=== PATIENT | male | born 1990 | race Caucasian/White ===

== ENCOUNTER 2024-07-09 13:31 | Observation (INO) | payer BC ==
[~2024-07-09] VITALS: Ht 177.8 cm; Wt 91.4 kg
--- NOTE | ~2024-07-09 | DS ---
[facility] [address], [place] [address] Draft ADMISSION DATE: 07/09/2024 DISCHARGE DATE: 07/11/2024 REASON FOR ADMISSION: Colitis. HISTORY OF PRESENT ILLNESS: This 34-year-old white man presented to the emergency room with a sudden onset of left side abdominal pain and significant diarrhea and rectal bleeding. He had no antecedent symptoms leading up to this episode. 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 Evaluation in the emergency room confirmed an elevated white count and a CT scan showed inflammatory changes of the left colon. He is admitted for further evaluation and care. PERTINENT PHYSICAL EXAMINATION: GENERAL: Showed a well-developed, well-nourished white man in vigorous health overall. He had no systemic toxicity. HEENT: Mucous membranes are slightly dry. Trachea midline. CHEST: Clear. HEART: Regular without murmur. ABDOMEN: Nondistended and generally soft. There is mild tenderness in the left mid abdomen and suprapubic and periumbilical area. EXTREMITIES: Show no clubbing, cyanosis, or edema. LABORATORY STUDIES: Showed a white count of 14.7, hematocrit 46.9, platelets 205,000. Normal Chem profile, normal coag studies. ASSESSMENT: The patient was considered to have colitis of uncertain etiology. His C-reactive protein was performed which was normal. He was given intravenous hydrocortisone 100 mg IV q.8 hours and antibiotic, Flagyl intravenously administered and IV Cipro. Bowel rest was maintained and he had liquids for comfort. The following day had much improvement clinically. He was deemed appropriate for colonoscopic evaluation to better characterize the type of colitis noted. After two tap water enemas he underwent intravenous sedation with colonoscopy. He was found to have only mild edema of the rectum and rectosigmoid, but significant colitis, probably ischemic colitis of the left colon. Complete sparing of the transverse and right colon was noted. Complete colonoscopy was undertaken to the cecum despite the relatively PATIENT NAME: BLANCA CASTELLANOS DISCHARGE SUMMARY DATE OF : [birth year] REPORT #: [id number] PHYSICIAN: JESSIKA DYER MD PCP: TOMÁS DÍAZ PA-C REPORT IS CONFIDENTIAL AND NOT TO BE RELEASED WITHOUT AUTHORIZATION [facility] [address], [place] [address] Draft minimal bowel prep, he underwent. Biopsies were taken throughout. He was considered likely to have ischemic colitis rather than inflammatory bowel disease and steroids were discontinued. He was begun on oral Flagyl and Levaquin antibiotics and maintained on a low-fiber diet. By the following morning, he was doing quite well. His symptoms have largely resolved. A fecal calprotectin was obtained which may better characterize his diagnosis which at this point, I believe to be ischemic colitis. He will be discharged home anticipating a two week low-fiber diet. I will see him back in approximately a month or so in the office. DISCHARGE MEDICATIONS: Will include 1. Levaquin 500 mg p.o. daily #7. 2. Flagyl 250 mg p.o. t.i.d. #21 to avoid alcohol. 3. Tylenol Extra Strength 500 mg two tablets p.o. q.6 hours as needed for pain #30. He will discontinue ibuprofen (NSAIDs have been implicated in colitis issues as well). 4. Stool studies which were obtained are still pending. It is noted as is a fecal calprotectin determination. His stool studies to include E coli and shiga toxin, Campylobacter and salmonella. MD FLORIN Keyes/MARIA /[id number] cc: IBETH Ma [facility] Copies: TOMÁS DÍAZ PA-C ~ PATIENT NAME: BLANCA CASTELLANOS DISCHARGE SUMMARY DATE OF : [birth year] REPORT #: [id number] PHYSICIAN: JESSIKA DYER MD PCP: TOMÁS DÍAZ PA-C REPORT IS CONFIDENTIAL AND NOT TO BE RELEASED WITHOUT AUTHORIZATION
[2024-07-09] MEDS ORDERED: IBU800 MG PO (14:13)
[2024-07-09] MEDS ORDERED: SODIUM CHLORIDE 0.9% 500 ML IV PRN (14:15)
[2024-07-09 14:19] LABS: BASOPHILS 0.3 % (0-2); EOSINOPHILS 0.5 % (0-6); HEMATOCRIT 46.9 % (35.0-50.0); HEMOGLOBIN 16.3 g/dL (12.0-18.0); LYMPHOCYTES 12.1 % (24-44); MCH 29.2 (27-36); MCHC 34.8 g/dl (30-36); MCV 83.9 fl (81-99); MONOCYTES 5.3 % (0-12); NEUTROPHILS 81.8 % (39-80); PLATELET COUNT 205 K/uL (140-440); RDW 12.7 (10.5-15.0)
[2024-07-09] MEDS ORDERED: fentaNYL citrate 100 MCG/2 ML VIAL IV ONE ×2 (14:30→14:45)
[2024-07-09] MEDS ORDERED: ondansetron HCL 4 MG/2 ML VIAL IV ONE ×2 (14:30→17:30)
[2024-07-09] MEDS ORDERED: fentaNYL citrate 100 MCG/2 ML VIAL ONE (14:34)
[2024-07-09 14:40] LABS: ALBUMIN 4.3 g/dL (3.4-5.0); ALBUMIN/GLOBULIN RATIO 1.34 (1.1-2.4); BUN/CREATININE RATIO 13.33 (6.0-28.6); CALCIUM 8.9 mg/dL (8.5-10.1); CREATININE, SERUM 1.2 mg/dL (0.70-1.30); PROTEIN, TOTAL 7.5 g/dL (6.4-8.2)
[2024-07-09 14:56] LABS: PARTIAL THROMBOPLASTIN TIME 25.3 Sec (22.9-41.3)
[2024-07-09 14:57] LABS: INR 1.05 (0.80-1.30); PROTIME 13.1 Sec (11.2-14.2)
[2024-07-09] MEDS ORDERED: MORPHINE SULFATE 4 MG/ML VIAL IV ONE (15:15)
[2024-07-09 15:24] LABS: ABO O; ANTIBODY SCREEN NEGATIVE; RH POSITIVE
[2024-07-09] MEDS ORDERED: HYDROmorphone HCL 1 MG/ML SYR IV ONE ×2 (15:30→17:30)
[2024-07-09 17:37] VITALS: BP 146/69
[2024-07-09] MEDS ORDERED: HYDROmorphone HCL 1 MG/ML SYR IV PRN (17:45)
[2024-07-09] MEDS ORDERED: ondansetron HCL 4 MG/2 ML VIAL IV PRN (17:45)
[2024-07-09] MEDS ORDERED: LACTATED RINGER'S 1,000 ML IV SCH (17:45)
--- NOTE | 2024-07-09 18:21 | NUR ---
PT TO MED-SURG VIA W/C IS PRESENT. PT AGREES HE IS COMFORTABLE AT THIS TIME H20 TO BEDSIDE IV INFUSING. PT ORIENTED TO ROOM AND CALL SYSTEM. SCD'S READY TO APPLY PT STATES HE MIGHT NEED TO USE THE TOILET REQUESTS HE WAIT UNTIL LATER IN THE EVENING.
--- NOTE | 2024-07-09 19:22 | NUR ---
REPORT RECEIVED FROM DAYSHIFT RN. PATIENT RESTING IN BED, WATCHING TV. PATIENT REQUESTED PAIN MEDICATION WITH NIGHT TIME MEDICATION. NO FURTHER NEEDS IDENTIFIED, CALL LIGHT IN REACH
[2024-07-09 19:53] VITALS: BP 130/75
[2024-07-09 19:55] VITALS: BP 130/75
--- NOTE | 2024-07-09 20:23 | NUR ---
CALL LIGHT ANSWERED, PRN PAIN MEDICATION ADMINISTERED PER ORDER FOR 7/10 ABD PAIN. PATIENT AMBULATED WELL TO RESTROOM WITHOUT ASSISTANCE. STOOL SAMPLE COLLECTED AND SENT TO LAB. PATIENT BACK IN BED WITHOUT DIFFICULTY, IVF CONTINUING TO INFUSE PER ORDER. NO FURTHER NEEDS AT THIS TIME, CALL LIGHT IN REACH. VS OBTAINED AND RECORDED, INTAKE AND OUTPUT DOCUMENTED.
[2024-07-09] MEDS ORDERED: FAMOTIDINE 20 MG/ 2 ML VIAL IV SCH (21:00)
--- NOTE | 2024-07-09 21:00 | NUR ---
SCHEDULED MEDS GIVEN PER ORDER. PRN PAIN MEDICATION ADMINISTERED FOR 6/10 ABD PAIN. IVF CONTINUING TO INFUSE PER ORDER. NO FURTHER NEEDS, CALL LIGHT IN REACH.
[2024-07-09] MEDS ORDERED: CEFAZOLIN SODIUM 2 GM/20 ML SYR IV SCH (22:00)
[2024-07-09] MEDS ORDERED: metroNIDAZOLE/SODIUM CHLORIDE 500 MG/100 ML PIGGYBACK IV SCH (22:00)
[2024-07-09] MEDS ORDERED: HYDROCORTISONE SOD SUCCINATE 100 MG/2 ML VIAL IV SCH (22:00)
--- NOTE | 2024-07-09 22:54 | NUR ---
SCHEDULED MEDS GIVEN PER ORDER. PATIENT AMBULATED TO RESTROOM WITHOUT DIFFICULTY. NO FURTHER NEEDS IDENTIFIED AT THIS TIME. CALL LIGHT IN REACH.
--- NOTE | 2024-07-09 23:28 | NUR ---
PRN PAIN MEDICATION ADMINISTERED PER ORDER, IVF CONTINUING TO INFUSE. PATIENT RESTING IN BED COMFORTABLY. PROVIDED WITH BROTH AND JOVON JENNYFER PER REQUEST. DENIES OTHER NEEDS, CALL LIGHT IN REACH.
[2024-07-10] VITALS (13 sets, daily range): BP systolic 115–137; BP diastolic 54–77
--- NOTE | 2024-07-10 00:03 | NUR ---
PATIENT RESTING, RESPIRATIONS EVEN AND UNLABORED. NO NEEDS IDENTIFIED, CALL LIGHT IN REACH. IVF CONTINUING TO INFUSE PER ORDER.
--- NOTE | 2024-07-10 01:54 | NUR ---
IVF CONTINUING TO INFUSE PER ORDER. PATIENT REFUSING SCD. VS OBTAINED AND RECORDED. INTAKE AND OUTPUT DOCUMENTED. PATIENT AMBULATED TO THE RESTROOM AND BACK TO BED WITHOUT DIFFICULTY. DENIES ANY NEEDS, CALL LIGHT IN REACH
--- NOTE | 2024-07-10 02:48 | NUR ---
CALL LIGHT ANSWERED, PRN PAIN MEDICATION GIVEN. PATIENT DENIES ANY OTHER NEEDS, IVF CONTINUING TO INFUSE PER ORDER. NO FURTHER NEEDS, CALL LIGHT IN REACH
[2024-07-10 05:17] LABS: BASOPHILS 0.2 % (0-2); EOSINOPHILS 0.5 % (0-6); HEMATOCRIT 42.9 % (35.0-50.0); LYMPHOCYTES 14.1 % (24-44); MCH 29.6 (27-36); MCHC 34.9 g/dl (30-36); MCV 84.7 fl (81-99); MONOCYTES 6.4 % (0-12); NEUTROPHILS 78.8 % (39-80); PLATELET COUNT 173 K/uL (140-440); RBC 5.06 M/ul (4.3-5.7); RDW 12.6 (10.5-15.0)
--- NOTE | 2024-07-10 05:21 | NUR ---
VS OBTAINED AND RECORDED. INTAKE AND OUTPUT DOCUMENTED. PATIENT CONTINUING TO REST, REPORTS THAT HE HAS NO NEEDS AT THIS TIME. CALL LIGHT IN REACH
[2024-07-10 05:33] LABS: ANION GAP 10.7 (7-21); BUN/CREATININE RATIO 9.09 (6.0-28.6); CALCIUM 8.4 mg/dL (8.5-10.1); CREATININE, SERUM 1.32 mg/dL (0.70-1.30); POTASSIUM 4.7 mmol/L (3.5-5.1)
--- NOTE | 2024-07-10 06:45 | NUR ---
SCHEDULED MEDS GIVEN PER ORDER. IVF CONTINUING TO INFUSE PER ORDER, PATIENT REPORTS THAT HE IS FEELING WELL. ABD ASSESSMENT COMPLETE. NO FURTHER NEEDS IDENTIFIED, CALL LIGHT IN REACH
--- NOTE | 2024-07-10 07:32 | NUR ---
PT AWAKE AT TIME OF SHIFT REPORT RESTING IN BED. AGREES HE IS COMFORTABLE. CALL LIGHT AND NEEDED ITEMS IN REACH
--- NOTE | 2024-07-10 07:57 | NUR ---
HOURLY ROUNDING. PATIENT HAS NO REQUEST CALL LIGHT HAS BEENPLACED WITHIN REACH, AND BOARD HAS BEEN UPDATED.
--- NOTE | 2024-07-10 09:21 | NUR ---
PT ASKS FOR ZOFRAN STATES HE'S "NOT VOMIT SICK" BUT THE LACK OF GOOD SLEEP AND THE DILAUDID LEAVE HIM FEELING KIND OF NAUSEATED. CONTINUES WITHOUT C/O PAIN. DR DYER IN TO SEE HIM PLANS FOR SCOPE THIS AFTERNOON. PROCEEDURE DISCUSSED AND PT VERBALIZES UNDERSTANDING.
--- NOTE | 2024-07-10 10:29 | NUR ---
UR CLINICAL REVIEW: MCG- PER MCG REVIEW MEETS OBS FOR INFLAMMATORY BOWEL WITH NEED FOR CSCOPE LLUVIA LOMELIO OBS 07/09/24 @ 1333 ORDER MATCHES REG NO AUTH REQ FOR OBS VISIT DISCHARGE TO HOME WHEN STABLE 07/11/24
--- NOTE | 2024-07-10 10:39 | NUR ---
PT RESTING EYES CLOSED PAIN MEDS EFFECTIVE
--- NOTE | 2024-07-10 11:20 | NUR ---
Spoke with David. He lives with his in a 2 story home. He does not have any issues getting in or out of his home. 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 He does not use any dme. He plans on dc to home when medically cleared with his . NO financial issues or safety concerns.
--- NOTE | 2024-07-10 12:10 | NUR ---
PT TO THE SHOWER IS ABLE TO DO SELF CARE INDEPENDANTLY. AGREES TO CALL FOR ANY NEEDS
--- NOTE | 2024-07-10 12:38 | NUR ---
SHOWER WELL TOLERATED PT RETURNS TO RESTING IN BED CONTINUES NPO
--- NOTE | 2024-07-10 14:06 | NUR ---
PT RESTING IN BED STATES HE FEELS MUCH BETTER AFTER HAVING A SHOWER AND SHAVING. ANTICIAPTE PROCEEDURE SOON. PT DENIES NEEDS
--- NOTE | 2024-07-10 14:33 | HP ---
[facility] [address], [place] [address] Signed ADMISSION DATE: 07/09/2024 REASON FOR ADMISSION: Bloody diarrhea with left lower abdominal pain and elevated white count, normal C-reactive protein. 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 He is accompanied by his . He presented to the emergency room today with complaints of left lower abdominal pain, fecal urgency, diarrhea, and rectal bleeding. He has associated left lower abdominal pain and some central suprapubic pain as well. He does not have pain on defecation in any way. 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 He had a bowel movement in the middle of the night, which was watery and uncertain bloody at that time. His left lower abdominal pain worsened and his bowel movements became watery and noted bright red blood as well. The pain worsened enough that he presented to the emergency room. He has no family history of ulcerative colitis or Crohn disease, but does have family history of colon cancer in a grandfather and polyps in his own father. There is no other family history of inflammatory bowel disease or other similar problems. His past medical history is notable for arthritis. He has had lower back surgery and neck surgery also. He does have allergies to morphine causing nausea and facial flushing. In the emergency room, his evaluation included a CBC, which was abnormal with a white count elevation to 14.7, hematocrit normal at 46.9, platelets normal at 205,000. Coag studies were normal. An INR of 1.05. Chem profile essentially normal. Glucose 124. C-reactive protein was 0.05. He did undergo a CT scan of the abdomen and pelvis, which I have reviewed. Radiologist interpretation included mild colitis of the descending colon. This included colonic wall thickening and submucosal edema of the descending colon, but no evidence of neoplasm. There was no regional adenopathy. He has no abscess. REVIEW OF SYSTEMS: He denies any shortness of breath or chest pain. He has no dysphagia. He does feel thirsty. PHYSICAL EXAMINATION: GENERAL: Pleasant white man who appears not to be systemically toxic. He is accompanied by his . HEENT: Mucous membranes are slightly dry. Trachea is midline. He has a Hep-Lock in place, but no IV fluids running. He did have 1 L fluid previously. Electronically Signed By: JESSIKA DYER MD 07/10/24 1433 PATIENT NAME: BLANCA CASTELLANOS HISTORY AND PHYSICAL DATE OF : [birth year] REPORT #: [id number] PHYSICIAN: JESSIKA DYER MD PCP: TOMÁS DÍAZ PA-C REPORT IS CONFIDENTIAL AND NOT TO BE RELEASED WITHOUT AUTHORIZATION [facility] [address], [place] [address] Signed CHEST: Clear. HEART: Regular without murmur. ABDOMEN: Nondistended and generally soft. There is mild tenderness in the left mid abdomen and in the suprapubic and periumbilical area. EXTREMITIES: Show no clubbing, cyanosis, or edema. There are no petechiae. LAB STUDIES: Notable primarily for white count of 14.7, hematocrit 46.9, platelets 205,000. Normal Chem profile. Normal coagulation studies. ASSESSMENT: He may have an infectious colitis causing diarrhea and bleeding or particularly given his age the possibility of inflammatory bowel disease. It is quite a bit less likely this represents malignancy, though he does have family history of colon cancer in his grandfather and polyps in his own father. I have recommended admission to the hospital, IV fluids, parental pain medication, empiric antibiotic including Flagyl. Stool studies to be obtained in consideration for treatment with intravenous steroids, hydrocortisone 100 mg IV q.8 hours. A partial or complete colonoscopy would be helpful as to diagnosis and that might be possible tomorrow depending how his course is over the night. Some level of bowel prep would be needed of course for that, possibly to include only Fleet's enemas. MD FLORIN Keyes/AFRICAL /[id number] cc: Dr. Gonsalves Copies: ~ Electronically Signed By: JESSIKA DYER MD 07/10/24 1433 PATIENT NAME: BLANCA CASTELLANOS HISTORY AND PHYSICAL DATE OF : [birth year] REPORT #: [id number] PHYSICIAN: JESSIKA DYER MD PCP: TOMÁS DÍAZ PA-C REPORT IS CONFIDENTIAL AND NOT TO BE RELEASED WITHOUT AUTHORIZATION
--- NOTE | 2024-07-10 15:33 | NUR ---
PT CONTINUES WAITING FOR PROCEEDURE, DENIES NEEDS AT THIS TIME.
--- NOTE | 2024-07-10 16:20 | NUR ---
WARM WATER ENEMA ADMINISTERED PER DR DYER ORDERS FLUID COMES BACK CLEAR LIQUID WITH A SMALL AMOUNT OF STOOL RESIDULE. REPEATED PROCEEDURE WELL TOLERATED BY PT.
--- NOTE | 2024-07-10 16:53 | NUR ---
PT PASSING MOSTLY CLEAR FLUID FEELS A BIT CRAMPY SO PAIN MED ADMINISTERED.
[2024-07-10] MEDS ORDERED: MIDAZOLAM HCL 5 MG/5 ML VIAL ONE (17:12)
[2024-07-10] MEDS ORDERED: fentaNYL citrate 100 MCG/2 ML VIAL ONE (17:13)
--- NOTE | 2024-07-10 17:15 | NUR ---
PT TO O/R VIA SUNIL
--- NOTE | 2024-07-10 18:02 | NUR ---
07/10/241801 Radha Ferrara 1800- RECEIVED REPORT FROM YASMANI CASTREJON. PT RESTING ON LEFT SIDE, ALL MONITORS IN PLACE, MOVED TO ROOM AIR. LR INFUSING TO LAC. ABD SOFT, NON DISTENDED. PT VERY DROWSY.
[2024-07-10] MEDS ORDERED: levoFLOXacin 500 MG TAB PO SCH (18:15)
--- NOTE | 2024-07-10 18:53 | NUR ---
PT BACK FROM PROCEEDURE LEFT SL AT THIS TIME SO HE CAN TOILET DESIRED. O/R REPORTS 1000ML FLUID IN, WILL RESTART IV WHEN PT SETTLES IN. BROTH AND CHEESE STIX PROVIDED PER REQUEST. DENIES WANT OF OTHER ITEMS AT THIS TIME
--- NOTE | 2024-07-10 19:28 | NUR ---
REPORT RECEIVED FROM DAY SHIFT RN. PT LYING IN BED ALERT AND ORIENTED. DENIES NEEDS. WHITE BOARD UPDATED. CALL LIGHT IN REACH.
--- NOTE | 2024-07-10 20:10 | NUR ---
EVENING ASSESSMENT COMPLETE. POST OP VS OBTAINED. PT REPORTS ABD PAIN /10. PRN FOR PAIN AND NAUSEA ADMIN PER EMAR. PT REPORTS LIQUID BM WITH SCANT AMOUNT BLOOD. BOWEL TONES ACTIVE. ABD SOFT. CRACKERS AND BROTHER PROVIDED. PT DENIES QUESTIONS OR CONCERNS. CALL LIGHT IN REACH.
--- NOTE | 2024-07-10 20:55 | NUR ---
IN ROOM FOR POST OP VS, VSS. KORY KRUSE PROVIDES ADDITIONAL PO FLUIDS FOR pt. CALL LIGHT IN REACH.
[2024-07-10] MEDS ORDERED: FAMOTIDINE 20 MG TAB PO SCH (21:00)
--- NOTE | 2024-07-10 22:00 | NUR ---
POST OP VS OBTAINED, WNL. NO C/O PAIN OR NAUSEA AT THIS TIME. SCD'S PLACED. NO FURTHER NEEDS. CALL LIGHT IN REACH.
--- NOTE | 2024-07-11 00:15 | NUR ---
PT RESTING IN BED WITH EYES CLOSED. RESPIRATIONS EVEN. CALL LIGHT IN RE3ACH.
[2024-07-11 01:51] VITALS: BP 122/68
[2024-07-11 01:53] VITALS: BP 122/68
--- NOTE | 2024-07-11 02:02 | NUR ---
PT AWAKE IN BED. VS OBTAINED, WNL. PT REPORTS ABD PAIN 09/07. PRN FOR PAIN ADMIN. NO C/O NAUSEA AT THIS TIME. PT GWYN CLEAR LIQUIDS WELL. BOWEL TONES ACTIVE. ABD SOFT. SCANT AMOUNT RED MUCOUS LIKE STOOL NOTED IN TOILET. NO FURTHER NEEDS. CALL LIGHT IN REACH.
--- NOTE | 2024-07-11 03:58 | NUR ---
PT RESTING IN BED WITH EYES CLOSED. RESPIRATIONS EVEN. CALL LIGHT IN REACH.
[2024-07-11 05:21] VITALS: BP 131/65
--- NOTE | 2024-07-11 05:36 | NUR ---
PT AWAKE IN BED. SCHEDULED MEDS ADMIN PER EMAR. PT DENIES PAIN OR NAUSEA. NO NEEDS AT THIS TIME. CALL LIGHT IN REACH.
--- NOTE | 2024-07-11 07:18 | NUR ---
REPORT RECEIVED FROM LUCÍA RENTERIA.
[2024-07-11] MEDS ORDERED: metroNIDAZOLE 250 MG TAB PO SCH (08:00)
--- NOTE | 2024-07-11 08:07 | OR ---
[facility] [address], [place] [address] Signed DATE OF OPERATION: 07/09/2024 SURGEON: Jessika Dyer MD PREOPERATIVE DIAGNOSIS: Acute bloody diarrhea with fecal urgency and CT scan findings left-sided inflammation of colon. POSTOPERATIVE DIAGNOSIS: Probable ischemic colitis including inflammatory change of left colon with transverse and rectal sparing PROCEDURE: Total colonoscopy to cecum with multiple biopsies. ANESTHESIA: Intravenous sedation, fentanyl 150 mcg and Versed 10 mg. 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 He was admitted by me yesterday having presented to the emergency room for his extreme fecal urgency and bloody diarrhea. This was of sudden onset with no prodromal symptoms. A CT scan was performed showing inflammatory changes of the left colon. He has no family history of ulcerative colitis that he is aware of and certainly does not smoke or have other ischemia producing abnormalities. He was treated with intravenous steroids, hydrocortisone, antibiotics, PPI medication on the basis of possible new onset inflammatory bowel disease. He is much improved today I have recommended colonoscopy be undertaken at this time to better characterize the issue of colitis to better guide therapy. The possibility of ulcerative colitis, Crohn's disease, infectious colitis, as well as ischemic colitis have all been considered. Of note, his C-reactive protein is NORMAL. He understands the risk of colonoscopy including, but not limited to bleeding, infection, and perforation and wished to proceed. FINDINGS: His only bowel prep was two tap water enemas, but good visualization throughout the entire colon was accomplished. Complete colonoscopy was undertaken of the cecum. He did have inflammatory changes of the left colon which were consistent with ischemic colitis. There were edematous changes of the rectum possibly related to the pre op Electronically Signed By: JESSIKA DYER MD 07/11/24 0807 PATIENT NAME: BLANCA CASTELLANOS OPERATIVE REPORT DATE OF : [birth year] REPORT #: [id number] PHYSICIAN: JESSIKA DYER MD PCP: TOMÁS DÍAZ PA-C REPORT IS CONFIDENTIAL AND NOT TO BE RELEASED WITHOUT AUTHORIZATION [facility] [address], [place] [address] Signed enemas and complete sparing of the transverse and right colon. Biopsies were taken throughout and final pathology is pending. DESCRIPTION OF PROCEDURE: The patient was brought to the endoscopy suite and placed in lateral decubitus position, given intravenous sedation to the point of slurred speech and nystagmus with full cardiopulmonary monitoring. Digital rectal examination was normal. An Olympus video colonoscope was passed in the rectum. The rectum was initially appeared reasonably normal. The scope was advanced to the sigmoid and into the mid left colon where inflammatory changes, edema and yellowish superficial plaque-like changes were noted. There is no typical deep ischemic changes though the initial impression was probable ischemic colitis. The scope was advanced beyond the splenic flexure to the transverse colon, which looked quite normal. The scope was ultimately advanced to the cecum with addition of irrigation. The cecum and right colon and transverse colon essentially looked normal. There was good clarity to the submucosal blood vessels, no edema and certainly no ulcerations. Biopsies were taken of the cecum, right colon and transverse colon. Biopsies were also taken of the proximal descending colon in the region of the splenic flexure, as there was edema and signs of inflammation there. The most dense inflammation was extending from approximately 60-70 cm and multiple biopsies were taken of that area as well. Further withdrawal confirmed inflammatory changes actually in the sigmoid and to a lesser extent the rectosigmoid and edematous changes of the rectum proper. Biopsies were taken in all those areas. The scope was removed and the patient was taken to the recovery room in good condition. CONCLUDING DIAGNOSIS: Colitis of the left colon with sparing of the right and transverse colon, edema and low-grade inflammation of rectum as well. It is uncertain the underlying etiology of this colitis, whether it is an ulcerative colitis problem (despite a normal CRP) or an infectious process (stool studies pending or an ischemic colitis type problem despite his vigorous health otherwise). In aggregate given the sudden onset of symptoms, lack of prodromal symptoms, normal CRP, and distribution of inflammatory changes, he most likely has ischemic colitis which will be self limited. PLAN: will discontinue iv steroids and start oral antibiotic flagyl and levaquin, a low fiber diet for a t least 2 weeks and provide supportive care. Will order a fecal calprotectin which may further differentiate the diagnosis and wait for pathologic resluts of biopsies. Electronically Signed By: JESSIKA DYER MD 07/11/24 0807 PATIENT NAME: BLANCA CASTELLANOS OPERATIVE REPORT DATE OF : [birth year] REPORT #: [id number] PHYSICIAN: JESSIKA DYER MD PCP: TOMÁS DÍAZ PA-C REPORT IS CONFIDENTIAL AND NOT TO BE RELEASED WITHOUT AUTHORIZATION [address] [address] Signed MD FLORIN Keyes/MODL /[id number] cc: IBETH Ma [facility] Copies: TOMÁS DÍAZ PA-C ~ Electronically Signed By: JESSIKA DYER MD 07/11/24 0807 PATIENT NAME: BLANCA CASTELLANOS OPERATIVE REPORT DATE OF : [birth year] REPORT #: [id number] PHYSICIAN: JESSIKA DYER MD PCP: TOMÁS DÍAZ PA-C REPORT IS CONFIDENTIAL AND NOT TO BE RELEASED WITHOUT AUTHORIZATION
[2024-07-11] MEDS ORDERED: LEVOFLOXACIN500 MG PO (08:27)
[2024-07-11] MEDS ORDERED: METRONIDAZOLE250 MG PO (08:28)
[2024-07-11] MEDS ORDERED: TYLENOL EXTRA500 MG PO (08:29)
[2024-07-11 09:04] VITALS: BP 135/75
--- NOTE | 2024-07-11 09:10 | NUR ---
Briefly saw pt, no needs. Home today.
--- NOTE | 2024-07-11 09:13 | NUR ---
ADMINISTERED MORNING MEDS WITH LUCÍA REA, PER ORDER. PT DRESSED AND READY TO GO. WILL D/C SOON PAPERWORK IS READY. PT DENIES ANY CONCERNS OR NEEDS AT THIS TIME. CALL LIGHT WITHIN REACH.
--- NOTE | 2024-07-11 09:48 | NUR ---
MED REC COMPLETE
--- NOTE | 2024-07-13 19:35 | PATH ---
[facility] [address] [facility] [place], [place] [address] Signed SPECIMEN(S): A CECUM COLON BIOPSY SPECIMEN(S): B TRANSVERSE COLON BIOPSY SPECIMEN(S): C PROXIMAL DESCENDING COLON BIOPSY SPECIMEN(S): D DISTAL LEFT COLON BIOPSY SPECIMEN(S): E SIGMOID COLON BIOPSY SPECIMEN(S): F RECTUM BIOPSY SPECIMEN SOURCE: A. CECUM COLON BIOPSY B. TRANSVERSE COLON BIOPSY C. PROXIMAL DESCENDING COLON BIOPSY D. DISTAL LEFT COLON BIOPSY E. SIGMOID COLON BIOPSY F. RECTUM BIOPSY CLINICAL HISTORY: Abdominal pain, bloody diarrhea, inflammatory changes-colitis uncertain type, probable ischemic colitis left colon FINAL PATHOLOGIC DIAGNOSIS: A. Cecum colon biopsy: - Fragments of benign colonic mucosa, negative for specific diagnostic abnormality. B. Transverse colon biopsy: - Fragments of benign colonic mucosa, negative for specific diagnostic abnormality. C. Proximal descending colon biopsy: - Fragments of benign colonic mucosa, negative for specific diagnostic abnormality. D. Distal left colon biopsy: - Colonic mucosa with lamina propriate fibrosis, epithelial erosion and crypt atrophy. - See comment. E. Sigmoid colon biopsy: - Benign colonic mucosa with focal slight lamina propriate fibrosis, crypt atrophy and chronic inflammation. - See comment. F. Rectum biopsy: - Benign colonic mucosa with focal superficial epithelial erosion, nonspecific. COMMENT: PATIENT NAME: BLANCA CASTELLANOS PATHOLOGY DATE OF : [birth year] REPORT #: [id number] PHYSICIAN: SHAR HOPE PCP: TOMÁS DÍAZ PA-C REPORT IS CONFIDENTIAL AND NOT TO BE RELEASED WITHOUT AUTHORIZATION [facility] [address] [place], [place] [address] Signed The biopsy findings raise the consideration of ischemic colitis and are consistent with the history of "probable ischemic colitis of the left colon". Clinical correlation is requested for definitive characterization. JVR:hong MICROSCOPIC EXAMINATION: Histologic sections of all submitted blocks are examined by light microscopy. These findings, together with the gross examination, support the pathologic diagnosis. GROSS DESCRIPTION: A. The specimen, labeled and designated "Uselman, cecum colon biopsy," is received in formalin and consists of three abel soft tissue fragments, ranging from 0.2-0.3 cm. Entirely submitted in (A1). B. The specimen, labeled and designated "Uselman, transverse colon biopsy," is received in formalin and consists of three abel soft tissue fragments, ranging from 0.2-0.3 cm. Entirely submitted in (B1). C. The specimen, labeled and designated "Uselman, proximal descending colon biopsy," is received in formalin and consists of one abel soft tissue fragment, 0.5 cm. Entirely submitted in (C1). D. The specimen, labeled and designated "Uselman, distal left colon biopsy," is received in formalin and consists of four bael soft tissue fragments, ranging from 0.2-0.4 cm. Entirely submitted in (D1). E. The specimen, labeled and designated "Uselman, sigmoid colon biopsy," is received in formalin and consists of two abel soft tissue fragments, ranging from 0.2-0.3 cm. Entirely submitted in (E1). F. The specimen, labeled and designated "Uselman, rectum biopsy," is received in formalin and consists of five abel soft tissue fragments, ranging from 0.2-0.5 cm. Entirely submitted in (F1). VB (under the direct supervision of a pathologist) The Gross Description was prepared using a voice recognition system. The report was reviewed for accuracy; however, sound-alike word errors, addition and/or deletions may occur. If there is any question about this report, please contact Client Services. PERFORMING LABORATORY: Technical component was performed by [facility], [address] [place] [id number] (CLIA# [id number]). Professional interpretation was PATIENT NAME: BLANCA CASTELLANOS PATHOLOGY DATE OF : [birth year] REPORT #: [id number] PHYSICIAN: SHAR HOPE PCP: TOMÁS DÍAZ PA-C REPORT IS CONFIDENTIAL AND NOT TO BE RELEASED WITHOUT AUTHORIZATION [facility] [address] [place] [id number] Signed [email or web address], [address] [place] [address], [place] [address] (CLIA#: [id number]). Diagnostician: Adithya Ortiz MD Pathologist Electronically Signed 07/13/2024 Copies: ~ PATIENT NAME: BLANCA CASTELLANOS PATHOLOGY DATE OF : [birth year] REPORT #: [id number] PHYSICIAN: SHAR PATHOLOGY PCP: TOMÁS DÍAZ PA-C REPORT IS CONFIDENTIAL AND NOT TO BE RELEASED WITHOUT AUTHORIZATION
== END 2024-07-11 09:41 | disposition home or self-care (01) ==
LOC: ED 13:31 → MS 13:33
PROVIDERS: Emergency Medicine; ADMIT Surgery; ATTEND Surgery
PROC: 0DBH8ZX Excision of Cecum, Via Natural or Artificial Opening Endoscopic, Diagnostic (ICD-10-PCS; principal; 2024-07-09)
PROC: 0DBL8ZX Excision of Transverse Colon, Via Natural or Artificial Opening Endoscopic, Diagnostic (ICD-10-PCS; 2024-07-09)
PROC: 0DBN8ZX Excision of Sigmoid Colon, Via Natural or Artificial Opening Endoscopic, Diagnostic (ICD-10-PCS; 2024-07-09)
PROC: 0DBP8ZX Excision of Rectum, Via Natural or Artificial Opening Endoscopic, Diagnostic (ICD-10-PCS; 2024-07-09)
PROC: 0DBG8ZX Excision of Left Large Intestine, Via Natural or Artificial Opening Endoscopic, Diagnostic (ICD-10-PCS; 2024-07-09)
DX: K52.9 Noninfective gastroenteritis and colitis, unspecified (principal); K62.5 Hemorrhage of anus and rectum; Z88.5 Allergy status to narcotic agent
CPT/HCPCS: 36415; 74177; 80048; 80053; 85025; 85610; 85730; 86140; 86850; 86900; 86901; 87045; 87046; 96365; 96366; 96375; 96376; 99153; 99285-25; G0378; G0500; J0690; J1171; J1720; J2250; J2405; J3010; J7040; J7121; Q9967

== ENCOUNTER 2024-09-20 18:45 | Emergency (ER) | payer OTHER, BC ==
[~2024-09-20] VITALS: Ht 177.8 cm; Wt 92.4 kg
[~2024-09-20 18:45] MED LIST: IBU800 MG PO; LEVOFLOXACIN500 MG PO; METRONIDAZOLE250 MG PO; TYLENOL EXTRA500 MG PO
[2024-09-20] MEDS ORDERED: ADVIL200 M1 PO (18:54)
[2024-09-20 19:50] LABS: BASOPHILS 0.4 % (0.2-1.2); EOSINOPHILS 5.0 % (0.8-7.0); LYMPHOCYTES 20.5 % (21.8-53.1); MCH 29.7 PG (25.7-32.2); MCHC 34.4 g/dL (32.3-36.5); MCV 86.4 fL (79.0-92.2); MONOCYTES 7.6 % (5.3-12.2); NEUTROPHILS 66.2 % (34.0-67.9); RBC 4.55 M/uL (4.63-6.08)
[2024-09-20 20:19] LABS: INR 1.05 (0.80-1.30); PROTIME 13.3 Sec (11.2-14.2)
[2024-09-20 20:20] LABS: ALT (SGPT) 44.0 U/L (14-59); AST (SGOT) 50.0 U/L (15-37); GLOMERULAR FILTRATION RATE,EST 75.0 mL/min (>60); PROTEIN, TOTAL 6.8 g/dL (6.4-8.2); UREA NITROGEN 20.0 mg/dL (7-18)
[2024-09-20] MEDS ORDERED: SODIUM CHLORIDE 0.9% 1,000 ML IV ONE ×2 (20:45)
[2024-09-20 22:15] LABS: GLOMERULAR FILTRATION RATE,EST 77.0 mL/min (>60); UREA NITROGEN 20.0 mg/dL (7-18)
[2024-09-20 22:33] VITALS: BP 104/61
--- NOTE | 2024-09-21 20:34 | EKG ---
[facility] [address] [facility] [place] [address] Signed Sinus rhythm with marked sinus arrhythmia Otherwise normal ECG No previous ECGs available Confirmed by Shelbie Ibanez MD () on 09/21/2024 8:33:56 PM Electronically Signed By: SHELBIE IBANEZ MD 09/21/242033 PATIENT NAME: BLANCA CASTELLANOS Electrocardiogram DATE OF : [birth year] PHYSICIAN: SHELBIE IBANEZ MD REPORT #: [id number] REPORT IS CONFIDENTIAL AND NOT TO BE RELEASED WITHOUT AUTHORIZATION
== END 2024-09-20 22:41 | disposition home or self-care (01) ==
LOC: ED 18:45
PROVIDERS: Family Medicine
DX: T75.4XXA Electrocution, initial encounter (principal); W86.8XXA Exposure to other electric current, initial encounter; Z88.5 Allergy status to narcotic agent
CPT/HCPCS: 36415; 80048; 80053; 82550; 82803; 83605; 83735; 84484; 85025; 85610; 86140; 93005; 93010; 99283; J7030

== ENCOUNTER 2024-12-12 20:32 | Emergency (ER) | payer BC ==
[~2024-12-12] VITALS: Ht 177.8 cm; Wt 94.0 kg
[~2024-12-12 20:32] MED LIST changes: +ADVIL200 M1 PO
[2024-12-12] MEDS ORDERED: LACTATED RINGER'S 1,000 ML IV ONE (21:00)
[2024-12-12] MEDS ORDERED: HYDROmorphone HCL 1 MG/ML SYR IV PRN (21:00)
[2024-12-12 21:08] LABS: BASOPHILS 0.4 % (0.2-1.2); EOSINOPHILS 6.7 % (0.8-7.0); LYMPHOCYTES 26.8 % (21.8-53.1); MCH 30.0 PG (25.7-32.2); MCHC 35.2 g/dL (32.3-36.5); MCV 85.3 fL (79.0-92.2); MONOCYTES 7.9 % (5.3-12.2); NEUTROPHILS 58.0 % (34.0-67.9); RBC 4.90 M/uL (4.63-6.08)
[2024-12-12 21:17] LABS: BLOOD/HGB, URINE NEGATIVE (Negative); KETONE, URINE NEGATIVE (Negative); LEUK ESTERASE, URINE NEGATIVE (negative); NITRITE, URINE NEGATIVE (negative)
[2024-12-12 21:24] LABS: ALT (SGPT) 28.0 U/L (14-59); AST (SGOT) 25.0 U/L (15-37); GLOMERULAR FILTRATION RATE,EST 70.0 mL/min (>60); PROTEIN, TOTAL 7.2 g/dL (6.4-8.2); UREA NITROGEN 19.0 mg/dL (7-18)
[2024-12-12] MEDS ORDERED: CELEBREX200 MG PO (22:26)
[2024-12-12] MEDS ORDERED: CYCLOBENZAPRINE10 MG PO (22:26)
[2024-12-12] MEDS ORDERED: CYCLOBENZAPRINE HCL 10 MG HOME.PACK PO ONE (22:45)
[2024-12-12 22:53] VITALS: BP 121/74
== END 2024-12-12 22:54 | disposition home or self-care (01) ==
LOC: ED 20:32
PROVIDERS: Family Medicine
DX: M79.18 Myalgia, other site (principal); Z88.5 Allergy status to narcotic agent
CPT/HCPCS: 36415; 74176; 80053; 81003; 85025; 96374; 99284-25; J1171; J7121

== ENCOUNTER 2025-02-20 16:56 | Emergency (ER) | payer BC ==
[~2025-02-20] VITALS: Ht 177.8 cm; Wt 94.0 kg
[~2025-02-20 16:56] MED LIST changes: +CELEBREX200 MG PO; +CYCLOBENZAPRINE10 MG PO
[2025-02-20] MEDS ORDERED: K2 PLUS D3 TAB1 EACH PO (17:17)
[2025-02-20 17:19] LABS: BASOPHILS 0.3 % (0.2-1.2); EOSINOPHILS 2.3 % (0.8-7.0); LYMPHOCYTES 11.0 % (21.8-53.1); MCH 29.8 PG (25.7-32.2); MCHC 35.5 g/dL (32.3-36.5); MCV 84.0 fL (79.0-92.2); MONOCYTES 4.7 % (5.3-12.2); NEUTROPHILS 81.4 % (34.0-67.9); RBC 5.06 M/uL (4.63-6.08)
[2025-02-20 17:35] LABS: ALT (SGPT) 53.0 U/L (14-59); AST (SGOT) 25.0 U/L (15-37); GLOMERULAR FILTRATION RATE,EST 80.0 mL/min (>60); PROTEIN, TOTAL 7.4 g/dL (6.4-8.2); UREA NITROGEN 19.0 mg/dL (7-18)
[2025-02-20] MEDS ORDERED: SODIUM CHLORIDE 0.9% 1,000 ML IV ONE (18:15)
[2025-02-20 19:15] VITALS: BP 112/90
[2025-02-20 19:49] LABS: BLOOD/HGB, URINE NEGATIVE (Negative); KETONE, URINE TRACE (Negative); LEUK ESTERASE, URINE NEGATIVE (negative); NITRITE, URINE NEGATIVE (negative)
[2025-02-20] MEDS ORDERED: HYDROmorphone HCL 1 MG/ML SYR IV PRN (20:00)
[2025-02-20] MEDS ORDERED: HYDROCODONE BIT/ACETAMINOPHEN 5/325 MG 1 TAB HOME.PACK PO ONE (21:15)
[2025-02-20] MEDS ORDERED: ONDANSETRON 4 MG HOME.PACK SL ONE (21:15)
== END 2025-02-20 21:45 | disposition home or self-care (01) ==
LOC: ED 16:56
PROVIDERS: Emergency Medicine
DX: R10.30 Lower abdominal pain, unspecified (principal); Z88.5 Allergy status to narcotic agent
CPT/HCPCS: 36415; 74177; 80053; 81003; 83690; 83735; 85025; 96374; 96376; 99284-25; A9270; J1171; J7030; Q9967